=== PATIENT | male | born 1975 | race African-American/Black ===

== ENCOUNTER 2023-05-22 12:40 | Emergency (ER) | payer MEDICAID ==
[~2023-05-22] VITALS: Ht 172.7 cm; Wt 83.0 kg
[2023-05-22 12:48] VITALS: O2SAT 100
[2023-05-22 13:36] LABS: BASOPHILS % 1.2 % (0.0-2.0); EOSINOPHILS % 2.6 % (0.0-5.0); HEMOGLOBIN. 13.6 g/dL (14.0-18.0); LYMPHOCYTES % 31.7 % (20.0-50.0); MEAN CORPUSCULAR HEMOGLOBIN 29.1 pg (28.0-32.0); MEAN CORPUSCULAR HGB CONC 33.2 g/dL (31.0-37.0); MEAN CORPUSCULAR VOLUME 87.8 fL (80.0-94.0); MEAN PLATELET VOLUME 7.8 fl (7.4-10.4); MONOCYTES % 6.7 % (2.0-8.0); NEUTROPHILS % 57.8 % (40.0-76.0); PLATELET 327 x1000/uL (130-400); RED BLOOD CELL COUNT 4.66 mill/uL (4.7-6.1); RED CELL DISTRIBUTION WIDTH 13.8 % (11.6-14.6)
[2023-05-22 13:54] LABS: ALANINE AMINOTRANSFERASE 33 IU/L (10-49); ALBUMIN 4.9 g/dL (3.2-4.8); ASPARTATE AMINOTRANSFERASE 36 IU/L (<34); BILIRUBIN TOTAL 0.3 mg/dL (0.1-1.0); CALCIUM 9.7 mg/dL (8.7-10.4); CARBON DIOXIDE 27 mEq/L (21-32); CHLORIDE 103 mEq/L (98-107); CREATININE 1.2 mg/dL (0.6-1.3); GLUCOSE 138 mg/dL (70-105); POTASSIUM 3.7 mEq/L (3.5-5.1); SODIUM 135 mEq/L (136-145); UREA NITROGEN BLOOD 9 mg/dL (9-23)
[2023-05-22] MEDS ORDERED: FAMOTIDINE 20MG TABLET PO ONE (16:15)
[2023-05-22] MEDS ORDERED: ONDANSETRON 4MG ODT PO ONE (16:15)
[2023-05-22] MEDS: PREDNISONE 10MG TABLET PO ONE (16:15)
[2023-05-22] MEDS: FAMOTIDINE 20MG TABLET PO NR (18:45)
[2023-05-22] MEDS: ONDANSETRON 4MG ODT PO NR (18:45)
[2023-05-22 18:49] VITALS: BP 125/78; PULSE 98; RESP 18; TEMP 98.6
== END 2023-05-22 19:05 | disposition home or self-care (01) ==
LOC: ER 12:40
DX: R11.10 Vomiting, unspecified (principal); T38.0X5A Adverse effect of glucocorticoids and synthetic analogues, initial encounter; Y92.89 Other specified places as the place of occurrence of the external cause
CPT/HCPCS: 99284; 80053; 83690; 85025; 36415; Q0162; J7512

== ENCOUNTER 2024-03-21 20:09 | Emergency (ER) | payer MEDICAID ==
[~2024-03-21] VITALS: Ht 167.6 cm; Wt 82.0 kg
[2024-03-21 20:12] VITALS: O2SAT 99
[2024-03-21] MEDS: KETOROLAC 15MG/ML VIAL IM ONE (21:37)
[2024-03-21] MEDS ORDERED: NAPR-1176 MT (21:39)
[2024-03-21] MEDS ORDERED: LIDO700A15 TP (21:39)
[2024-03-21 22:35] VITALS: BP 131/86; PULSE 82; RESP 17; TEMP 36.83628; O2SAT 99
== END 2024-03-21 22:54 | disposition home or self-care (01) ==
LOC: ER 20:09
DX: M25.561 Pain in right knee (principal); I10 Essential (primary) hypertension; E11.9 Type 2 diabetes mellitus without complications; Z79.899 Other long term (current) drug therapy
CPT/HCPCS: 73562; 96372; 99283; J1885; Z7610